=== PATIENT | male | born 1975 ===

== ENCOUNTER 2023-10-11 18:25 | Emergency (ER) | payer OTHER ==
[~2023-10-11] VITALS: Ht 167.6 cm; Wt 72.6 kg
[~2023-10-11 18:25] MED LIST: DICLOFENAC POTA50 MG PO; NORFLEX100MG PO
[2023-10-11] MEDS ORDERED: HYDROCHLOROTH12.5 MG PO (18:47)
[2023-10-11 20:06] LABS: HEMATOCRIT 40.9 % (39.0-48.0); HEMOGLOBIN 13.9 g/dL (13-16.00); MEAN CELL VOLUME 87.4 fL (80.0-100.00); MEAN CORPUSCULAR HEMOGLOBIN 29.6 pg (27.00-32.0); MEAN CORPUSCULAR HGB CONC 33.9 g/dl (32.0-36.0); PLATELET COUNT 274 K/uL (150-450); RED BLOOD COUNT 4.68 M/uL (4.00-6.00); RED CELL DISTRIBUTION WIDTH 13.2 % (11.5-14.5)
[2023-10-11 20:23] LABS: CALCIUM 9.3 mg/dL (8.5-10.1); GFR 79.09; POTASSIUM 3.95 mEq/L (3.5-5.1)
== END 2023-10-11 20:53 | disposition home or self-care (01) ==
LOC: ER 18:25
PROVIDERS: General Practice
DX: R20.2 Paresthesia of skin (principal)